=== PATIENT | male | born 1970 | race Caucasian/White ===

== ENCOUNTER 2018-10-28 11:55 | Day surgery (SDC) | payer OTHER ==
[~2018-10-28] VITALS: Ht 185.4 cm; Wt 88.4 kg
[~2018-10-28 11:55] MED LIST: ADDE30CA3 PO; AMLO10TA5 PO; DUPI200I SC; LISI10TA4 PO; NS 1,000 ML IV ONE; PANT40TA3 PO; TRAM50TA2 PO
[2018-10-28] MEDS ORDERED: PROPOFOL 200 MG/20 ML VIAL As Ordered ONE (13:14)
[2018-10-28] MEDS ORDERED: LIDOCAINE 2% INJ 100 MG/5 ML SDV (FOR ANES.) As Ordered ONE (13:14)
--- NOTE | 2018-10-28 14:40 | ROOR ---
Patient Name: Rojelio Salazar Procedure Date: 10/28/2018 2:22 PM Date of : 1970 Age: 48 Room: [facility] Gender: Male Note Status: Finalized Procedure: Upper GI endoscopy Indications: Heartburn Providers: Edin MAGALLANES MD Referring MD: AMAYA CONDE MD Requesting Provider: Medicines: Monitored Anesthesia Care Complications: No immediate complications. Procedure: Pre-Anesthesia Assessment: - The heart rate, respiratory rate, oxygen saturations, blood pressure, adequacy of pulmonary ventilation, and response to care were monitored throughout the procedure. The Endoscope was introduced through the mouth, and advanced to the second part of duodenum. The upper GI endoscopy was accomplished without difficulty. The patient tolerated the procedure well. Findings: Moderately severe esophagitis was found 41 cm from the incisors. The exam was otherwise without abnormality. Impression: - Moderately severe reflux esophagitis. - The examination was otherwise normal. - No specimens collected. Recommendation: - Use Protonix (pantoprazole) 40 mg PO daily. - Observe patient's clinical course. - Follow an antireflux regimen. Edin Magallanes MD Edin MAGALLANES MD 10/28/2018 2:40:12 PM This report has been signed electronically. Number of Addenda: 0 Note Initiated On: 10/28/2018 2:22 PM Estimated Blood Loss: Estimated blood loss: none.
--- NOTE | 2018-10-28 14:51 | ROOR ---
Patient Name: Rojelio Salazar Procedure Date: 10/28/2018 2:29 PM Date of : 1970 Age: 48 Room: [facility] Gender: Male Note Status: Finalized Procedure: Colonoscopy Indications: Hematochezia Providers: Edin MAGALLANES MD Referring MD: AMAYA CONDE MD Requesting Provider: Medicines: Monitored Anesthesia Care Complications: No immediate complications. Procedure: Pre-Anesthesia Assessment: - The heart rate, respiratory rate, oxygen saturations, blood pressure, adequacy of pulmonary ventilation, and response to care were monitored throughout the procedure. The Colonoscope was introduced through the anus and advanced to 10 cm into the ileum. The colonoscopy was performed without difficulty. The patient tolerated the procedure well. The quality of the bowel preparation was good. Findings: The perianal and digital rectal examinations were normal. Small Internal Hemorrhoids. The entire examined colon appeared normal on direct and retroflexion views. The terminal ileum appeared normal. Retroflexion in the right colon was performed. Impression: - Small Internal Hemorrhoids. - The entire examined colon is normal on direct and retroflexion views. - The examined portion of the ileum was normal. - No specimens collected. Recommendation: - Use fiber, for example Citrucel, Fibercon, Konsyl or Metamucil. - Repeat colonoscopy in 10 years for screening purposes. Edin Magallanes MD Edin MAGALLANES MD 10/28/2018 2:51:09 PM This report has been signed electronically. Number of Addenda: 0 Note Initiated On: 10/28/2018 2:29 PM Estimated Blood Loss: Estimated blood loss: none.
[2018-10-28 15:21] VITALS: BP 127/90
== END 2018-10-28 16:03 | disposition home or self-care (01) ==
LOC: M OPP 11:55
PROVIDERS: ATTEND Internal Medicine Gastroenterology
DX: K92.1 Melena (principal); R12 Heartburn; K64.8 Other hemorrhoids; K21.0 Gastro-esophageal reflux disease with esophagitis; G47.33 Obstructive sleep apnea (adult) (pediatric); I10 Essential (primary) hypertension; Z79.899 Other long term (current) drug therapy; Z87.891 Personal history of nicotine dependence

== ENCOUNTER → 2018-12-07 | Outpatient (CLI) | payer OTHER ==
[~2018-12-07] MED LIST changes: -NS 1,000 ML IV ONE
--- NOTE | 2018-12-08 08:54 | REP ---
Clinical: Paresthesia of the lower extremities. Technique: Real time livingston scale and color Doppler evaluation of the bilateral lower extremity arterial vasculature using linear high frequency transducer. Findings: Livingston scale and color images demonstrate no significant areas of stenosis or narrowing. Doppler interrogation demonstrates normal triphasic arterial wave forms and velocities bilaterally. Right NAOMI: 1.1. Left NAOMI: 1.1. Peak systolic velocities (cm/sec) RIGHT LEFT Common femoral artery 96.3 95.9 Profunda femoris 88.2 59.0 SFA (proximal) 103.0 122.0 SFA (mid) 117.4 94.5 SFA (distal) 74.2 49.0 Popliteal artery 52.6 50.7 BRANDON (prox.) 36.0 42.3 Tibioperoneal trunk 61.1 52.5 VOLLEYBALL ASSISTANT COACH (prox.) 51.2 45.9 VOLLEYBALL ASSISTANT COACH (distal) 65.6 51.0 BRANDON (distal) 18.7 41.3 Impression: Normal bilateral lower extremity arterial ultrasound. No areas of stenosis. Electronically Signed by Nikolai Amaro MD 12/08/2018 08:46 A
== END ==
LOC: M RAD 09:14
PROVIDERS: ATTEND Student in an Organized Health Care Education/Training Program
DX: R20.0 Anesthesia of skin (principal)

== ENCOUNTER 2020-09-28 14:27 | Emergency (ER) | payer OTHER ==
[~2020-09-28] VITALS: Ht 190.5 cm; Wt 94.0 kg
[~2020-09-28 14:27] MED LIST changes: -AMLO10TA5 PO; +AMLO1TAB25 PO; +PANT40TA29 PO; -PANT40TA3 PO
--- OUTSIDE RECORDS SUMMARY | 2020-09-28 14:35 | CCD | Continuity of Care Document ---
Author Author Rojelio CASE MD Organization Unknown Address [address] [place] [address], [address] [address] Phone [phone] Care Team Providers Care Product Development Intern Name Role Phone Bob Roman D.O. AUTM [phone] Jovana Lima AUTM [phone] Problems Active Problems Provider Date Essential hypertension Juventino Walker MD Onset: 12/21/2018 Social History Type Date Description Comments Sex Unknown ETOH Use Denies alcohol use Tobacco Use Start: Unknown End: Unknown Patient is a former smoker Smoking Status Reviewed: 05/15/20 Patient is a former smoker Allergies, Adverse Reactions, Alerts Description No Known Drug Allergies Medications Active Medications SIG Qnty Indications Ordering Provide r Date Hydrochlorothiazide 12.5mg Capsules Yoko Mullins MD Lisinopril 20mg Tablets Yoko Mullins MD Tramadol HCL 50mg Tablets Guerda Dodson FNP Norvasc 2.5mg Tablets Unknown Immunizations Description No Information Available Vital Signs Date Vital Result Comment 06/20/2020 10:28am Body Temperature 97.5 F Height 73 inches 6'1" Weight 213.00 lb BMI (Body Mass Index) 28.1 kg/m2 04/30/2020 2:45pm Body Temperature 98.0 F Height 73 inches 6'1" Weight 205.00 lb BMI (Body Mass Index) 27.0 kg/m2 Results Test Acquired Date Facility Test Result H/L Range Note Order 06/04/2020 [facility] [address] [facility] [address] [place] [address] Surgery <pending> Procedures Date Code Description Status 06/28/2020 07700 Inject/Drain Joint/Bursa Major C ompleted 05/15/2020 08592 Nerve Conduction 13+ Studies Com pleted 05/15/2020 06603 Needle Electromyography,Complete Five Or More Muscles Studied Completed Medical Devices Description No Information Available Encounters Type Date Location Provider Dx Diagnosis Office Visit 06/28/2020 9:15a Alicia Cazares MD M7 5.42 Impingement syndrome of left shoulder M75.52 Bursitis of left shoulder Office Visit 06/20/2020 10:00a Alicia Case MD M75.42 Impingement syndrome of left shoulder Office Visit 05/30/2020 9:15a Alicia Case MD G56.21 Lesion of ulnar nerve, right upper limb G56.22 Lesion of ulnar nerve, left upper limb G56.01 Carpal tunnel syndrome, righ t upper limb Office Visit 05/15/2020 8:00a Alicia Walker MD R20.2 Paresthesia of skin G56.21 Lesion of ulnar nerve, right upper limb G56.01 Carpal tunnel syndrome, righ t upper limb M50.322 Other cervical disc degenera tion at C5-C6 level Office Visit 04/30/2020 2:00p Alicia Case MD R20.2 Paresthesia of skin Assessments Date Code Description Provider 06/28/2020 M75.42 Impingement syndrome of left paul ulder D. Juan Cazares MD 06/28/2020 M75.52 Bursitis of left shoulder D. Pet madhu Cazares MD 06/20/2020 M75.42 Impingement syndrome of left paul ulder Tim Case MD 05/30/2020 G56.21 Lesion of ulnar nerve, right upp er limb Tim Case MD 05/30/2020 G56.22 Lesion of ulnar nerve, left uppe r limb Tim Case MD 05/30/2020 G56.01 Carpal tunnel syndrome, right up per limb Tim Case MD 05/15/2020 R20.2 Paresthesia of skin Juventino darnell MD 05/15/2020 G56.21 Lesion of ulnar nerve, right upp er limb Juventino Walker MD 05/15/2020 G56.01 Carpal tunnel syndrome, right up per limb Juventino Walker MD 05/15/2020 M50.322 Other cervical disc degeneration at C5-C6 level Juventino Walker MD 04/30/2020 R20.2 Paresthesia of skin Tim zurita MD Plan of Treatment 06/28/2020 - Anamika Cazares MD* M75.42 Impingement syndrome of left shoulder* Follow up:* in 2-3 months for left shoulder recheck * M75.52 Bursitis of left shoulder Functional Status Description No Information Available Mental Status Description No Information Available Referrals Refer to Reason for Referral Status Appt Date Tim Case MD SURGERY PER [employer] APPROVAL FOR LEFT ULNAR NERVE SURGERY (29879) TO SURGERY NT Created [address] [place], [place] [id number] [phone] Tim Case MD EMG([id number]) PER H [facility] HAS MELISSA APPROVED FOR DR ROW[place] TO SCHEDULING NT Created [address] [place] [phone] Tim Case MD OFFICE CONSULT NEW OR ESTABL ISHED PATIENT FOR BILATERAL ULNAR NEUROPATHY CASING NUMBNESS/TINGLING OF THE 4TH AND 5TH DIGITS BILATERALLY. Created [address] [place] [phone] Tim Case MD OFFICE/OUTPATIENT VISIT EST FOR BILATERAL ULNAR NEUROPATHY CAUSING NUMBNESS/TINGLING OF THE 4TH AND 5TH DIGITS BILATERALLY. Created [address] [place] [phone]
--- OUTSIDE RECORDS SUMMARY | 2020-09-28 14:35 | CCD | Continuity of Care Document ---
Author Author Rojelio CAZARES MD Organization Unknown Address [address] [place] [address], [address] [address] Phone [phone] Care Team Providers Care Roofing Subcontractor Name Role Phone AbelBob D.O. AUTM [phone] Jovana Lima AUTM [phone] Problems Active Problems Provider Date Essential hypertension [...] 06/04/2020 [facility] [address] [facility] [address] [place] [address] Surgery <pending> Procedures Date Code Description Status 06/28/2020 81004 Inject/Drain Joint/Bursa Major C ompleted 05/15/2020 06874 Nerve Conduction 13+ Studies Com pleted 05/15/2020 85998 Needle Electromyography,Complete Five Or More Muscles Studied Completed Medical Devices Description No Information Available Encounters Type Date Location Provider Dx Diagnosis Office Visit 06/28/2020 9:15a Alicia Cazares MD M2 5.512 Pain in left shoulder M19.012 Primary osteoarthritis, left shoulder Office Visit 06/20/2020 10:00a Alicia Buckley MD M75.42 Impingement syndrome of left shoulder Office Visit 05/30/2020 9:15a Alicia Buckley MD G56.21 Lesion of ulnar nerve, right [...] C5-C6 level Office Visit 04/30/2020 2:00p Alicia Buckley MD R20.2 Paresthesia of skin Assessments Date Code Description Provider 06/28/2020 M25.512 Pain in left shoulder D. Juan hernandez MD 06/28/2020 M19.012 Primary osteoarthritis, left paul mandi Cazares MD 06/20/2020 M75.42 Impingement syndrome of left paul ulder Tim Buckley MD 05/30/2020 G56.21 Lesion of ulnar nerve, right upp er limb Tim Buckley MD 05/30/2020 G56.22 Lesion of ulnar nerve, left uppe r limb Tim Buckley MD 05/30/2020 G56.01 Carpal tunnel syndrome, right up per limb Tim Buckley MD 05/15/2020 R20.2 Paresthesia of skin Juventino darnell MD 05/15/2020 G56.21 Lesion of ulnar nerve, right upp er limb Juventino Walker MD 05/15/2020 G56.01 Carpal tunnel syndrome, right up per limb Juventino Walker MD 05/15/2020 M50.322 Other cervical disc degeneration at C5-C6 level Juventino Walker MD 04/30/2020 R20.2 Paresthesia of skin Tim zurita MD Plan of Treatment 06/20/2020 - Tim Buckley MD* M75.42 Impingement syndrome of left shoulder* Follow up:* next avail surg eval lt shoulder with dpv per sbf prn with sbf Functional Status Description No Information Available Mental Status Description No Information Available Referrals Refer to Reason for Referral Status Appt Date Tim Buckley MD SURGERY PER [employer] APPROVAL FOR LEFT ULNAR NERVE SURGERY ([id number]) TO SURGERY NT Created [address] [place] [address] [phone] Tim Buckley MD EMG([id number]) PER H [employer] HAS MELISSA APPROVED FOR DR [place] TO SCHEDULING NT Created [address] [place] [phone] Tim Buckley MD OFFICE CONSULT NEW OR ESTABL ISHED PATIENT FOR BILATERAL ULNAR NEUROPATHY CASING NUMBNESS/TINGLING OF THE 4TH AND 5TH DIGITS BILATERALLY. Created [address] [place] [phone] Tim Buckley MD OFFICE/OUTPATIENT VISIT EST FOR BILATERAL ULNAR NEUROPATHY CAUSING NUMBNESS/TINGLING OF THE 4TH AND 5TH DIGITS BILATERALLY. Created [facility] [address] [address] [phone]
--- OUTSIDE RECORDS SUMMARY | 2020-09-28 14:36 | CCD ---
Author Author [facility] Organization [facility] Address Unknown Phone Unavailable Care Team Providers Care Loss Prevention Specialist Name Role Phone Jumalon, M Guerda X [employer] WIREMAN Unavailable Unavailable Jumalon, M Guerda X [employer] WIREMAN Unavailable Unavailable Jumalon, M Guerda X [employer] ELECT[employer] WIREMAN Unavailable Unavailable Jumalon, M Guerda X RAY ELECTRON[employer] WIREMAN Unavailable Unavailable Jumalon, M Guerda X RAY ELECTRONICS WIREMAN Unavailable Unavailable Jumalon, M Guerda X RAY ELECTRONICS WIREMAN Unavailable Unavailable Jumalon, M Guerda X RAY ELECTRONICS WIREMAN Unavailable Unavailable Jumalon, M Guerda X RAY ELECTRONICS WIREMAN Unavailable Unavailable Jumalon, M Guerda X RAY ELECTRONICS WIREMAN Unavailable Unavailable Jumalon, M Guerda X RAY ELECTRONICS WIREMAN Unavailable Unavailable Jumalon, M Guerda X RAY ELECTRONICS WIREMAN Unavailable Unavailable Jumalon, M Guerda X RAY ELECTRONICS WIREMAN Unavailable Unavailable Jumalon, M Guerda X R[employer] ELECTRONICS WIREMAN Unavailable Unavailable Jumalon, M Guerda X RAY ELECTRONICS WIREMAN Unavailable Unavailable Jumalon, M Guerda X RAY ELECTRONICS WIREMAN Unavailable Unavailable Jumalon, M Guerda X RAY ELECTRONICS WIREMAN Unavailable Unavailable Jumalon, M Guerda X R[employer] ELECTRONICS WIREMAN Unavailable Unavailable Jumalon, M Guerda X R[employer] ELECTRON[employer] WIREMAN Unavailable Unavailable Jumalon, M Guerda X [employer] ELECTRON[employer] WIREMAN Unavailable Unavailable Jumalon, M Guerda X R[employer] ELECTRON[employer] WIREMAN Unavailable Unavailable Jumalon, M Guerda X RAY ELECTRONICS WIREMAN Unavailable Unavailable Jumalon, M Guerda X RAY ELECTRONICS WIREMAN Unavailable Unavailable Jumalon, M Guerda X RAY ELECTRONICS WIREMAN Unavailable Unavailable Jumalon, M Guerda X RAY ELECTRON[employer] WIREMAN Unavailable Unavailable Jumalon, M Guerda X R[employer] ELECTRON[employer] WIREMAN Unavailable Unavailable Jumalon, M Guerda X [employer] ELECT[employer] WIREMAN Unavailable Unavailable Jumalon, M Guerda X [employer] ELECT[employer] WIREMAN Unavailable Unavailable Jumalon, M Guerda X R[employer] ELECT[employer] WIREMAN Unavailable Unavailable Fish, B Tim ALEGRIA Unavailable Unavailable Fish, B Tim ALEGRIA Unavailable Unavailable Fish, B Tim ALEGRIA Unavailable Unavailable Fish, B Tim ALEGRIA Unavailable Unavailable Fish, B Tim ALEGRIA Unavailable Unavailable Fish, B Tim ALEGRIA Unavailable Unavailable Fish, B Tim ALEGRIA Unavailable Unavailable Fish, B Tim ALEGRIA Unavailable Unavailable Fish, B Tim ALEGRIA Unavailable Unavailable Fish, B Tim ALEGRIA Unavailable Unavailable Fish, B Tim ALEGRIA Unavailable Unavailable Fish, B Tim ALEGRIA Unavailable Unavailable Fish, B Tim ALEGRIA Unavailable Unavailable Fish, B Tim ALEGRIA Unavailable Unavailable Fish, B Tim ALEGRIA Unavailable Unavailable Fish, B Tim ALEGRIA Unavailable Unavailable Fish, B Tim ALEGRIA Unavailable Unavailable Fish, B Tim ALEGRIA Unavailable Unavailable Fish, B Tim ALEGRIA Unavailable Unavailable Fish, B Tim ALEGRIA Unavailable Unavailable Fish, B Tim ALEGRIA Unavailable Unavailable Fish, B Tim ALEGRIA Unavailable Unavailable Fish, B Tim ALEGRIA Unavailable Unavailable Fish, B Tim ALEGRIA Unavailable Unavailable Fish, B Tim ALEGRIA Unavailable Unavailable Fish, B Tim ALEGRIA Unavailable Unavailable Fish, B Tim ALEGRIA Unavailable Unavailable Fish, B Tim ALEGRIA Unavailable Unavailable Fish, B Tim ALEGRIA Unavailable Unavailable Fish, B Tim ALEGRIA Unavailable Unavailable Fish, B Tim ALEGRIA Unavailable Unavailable Fish, B Tim ALEGRIA Unavailable Unavailable Fish, B Tim ALEGRIA Unavailable Unavailable Fish, B Tim ALEGRIA Unavailable Unavailable Fish, B Tim ALEGRIA Unavailable Unavailable Fish, B Tim ALEGRIA Unavailable Unavailable Fish, B Tim ALEGRIA Unavailable Unavailable Fish, B Tim ALEGRIA Unavailable Unavailable Fish, B Tim ALEGRIA Unavailable Unavailable Fish, B Tim ALEGRIA Unavailable Unavailable Fish, B Tim ALEGRIA Unavailable Unavailable Fish, Lay Dumont MD Unavailable Unavailable Fish, B Tim ALEGRIA Unavailable Unavailable Fish, B Tim ALEGRIA Unavailable Unavailable Fish, Lay Dumont MD Unavailable Unavailable Fish, Lay Dumont MD Unavailable Unavailable Fish, Lay Dumont MD Unavailable Unavailable Fish, Lay Dumont MD Unavailable Unavailable Fish, B Tim ALEGRIA Unavailable Unavailable Fish, B Tim ALEGRIA Unavailable Unavailable Fish, B Tmi ALEGRIA Unavailable Unavailable Fish, B Tim ALEGRIA Unavailable Unavailable Fish, Lay Dumont MD Unavailable Unavailable Vaneenenaam, Mat Martinez MD Unavailable Unavailable Vaneenenaam, Mat Martinez MD Unavailable Unavailable Vaneenenaam, Mat Martinez MD Unavailable Unavailable Vaneenenaam, Mat Martinez MD Unavailable Unavailable Vaneenenaam, Mat Martinez MD Unavailable Unavailable Vaneenenaam, Mat Martinez MD Unavailable Unavailable Vaneenenaam, Mat Martinez MD Unavailable Unavailable Vaneenenaam, Mat Martinez MD Unavailable Unavailable Vaneenenaam, aMt Martinez MD Unavailable Unavailable Vaneenenaam, Mat Martinez MD Unavailable Unavailable Vaneenenaam, Mat Martinez MD Unavailable Unavailable Vaneenenaam, Mat Martinez MD Unavailable Unavailable Vaneenenaam, Mat Martinez MD Unavailable Unavailable Vaneenenaam, Mat Martinez MD Unavailable Unavailable Vaneenenaam, Mat aMrtinez MD Unavailable Unavailable Vaneenenaam, Mat Martinez MD Unavailable Unavailable Vaneenenaam, Mat Martinez MD Unavailable Unavailable Vaneenenaam, Mat Martinez MD Unavailable Unavailable Vaneenenaam, Mat Martinez MD Unavailable Unavailable Vaneenenaam, Mat Martinez MD Unavailable Unavailable Vaneenenaam, Mat Martinez MD Unavailable Unavailable Vaneenenaam, Mat Martinez MD Unavailable Unavailable Vanaidaam, Mat Martinez MD Unavailable Unavailable Vaneenenaam, Mat Martinez MD Unavailable Unavailable Vaneenjessicaam, Mat Martinez MD Unavailable Unavailable Vaneenenaam, Mat Martinez MD Unavailable Unavailable Vaneenenaam, Mat Martinez MD Unavailable Unavailable Vaneenenaam, Mat Martinez MD Unavailable Unavailable Vaneenjessicaam, Mat Martinez MD Unavailable Unavailable Vaneenjessicaam, Mat Martinez MD Unavailable Unavailable Vanaidaam, Mat Martinez MD Unavailable Unavailable Vaneenjessicaam, Mat Martinez MD Unavailable Unavailable Vanaidaam, Mat Martinez MD Unavailable Unavailable Vaneenjessicaam, Mat Martinez MD Unavailable Unavailable Vanidalia, Mat Martinez MD Unavailable Unavailable Vanidalia, Mat Martinez MD Unavailable Unavailable Vanidalia, Mat Martinez MD Unavailable Unavailable Vaneenjessicaam, Mat Martinez MD Unavailable Unavailable Vanidalia, Mat Martinez MD Unavailable Unavailable Vanaidaam, Mat Martinez MD Unavailable Unavailable Vanidalia, Mat Martinez MD Unavailable Unavailable Debora, Mat Martinez MD Unavailable Unavailable Olivia Santoyo MD Unavailable Unavailable Olivia Santoyo MD Unavailable Unavailable Olivia Santoyo MD Unavailable Unavailable Olivia Santoyo MD Unavailable Unavailable Olivia Santoyo MD Unavailable Unavailable Olivia Santoyo MD Unavailable Unavailable Olivia Santoyo MD Unavailable Unavailable Olivia Santoyo MD Unavailable Unavailable Olivia Santoyo MD Unavailable Unavailable Olivia Santoyo MD Unavailable Unavailable Olivia Santoyo MD Unavailable Unavailable Bolla, S Kenneth MD Unavailable Unavailable Bolla, S Kenneth MD Unavailable Unavailable Bolla, S Kenneth MD Unavailable Unavailable Bolla, S Kenneth MD Unavailable Unavailable Bolla, S Kenneth MD Unavailable Unavailable Bolla, S Kenneth MD Unavailable Unavailable Bolla, S Kenneth MD Unavailable Unavailable Bolla, S Kenneth MD Unavailable Unavailable Bolla, S Kenneth MD Unavailable Unavailable Bolla, S Kenneth MD Unavailable Unavailable Bolla, S Kenneth MD Unavailable Unavailable Bolla, S Kenneth MD Unavailable Unavailable Bolla, S Kenneth MD Unavailable Unavailable Bolla, S Kenneth MD Unavailable Unavailable Bolla, S Kneneth MD Unavailable Unavailable Bolla, S Kenneth MD Unavailable Unavailable Bolla, S Kenneth MD Unavailable Unavailable Bolla, S Kenneth MD Unavailable Unavailable Bolla, S Kenneth MD Unavailable Unavailable Bolla, S Kenneth ALEGRIA Unavailable Unavailable Bolla, S Kenneth MD Unavailable Unavailable Bolla, S Kenneth ALEGRIA Unavailable Unavailable Bolla, S Kenneth MD Unavailable Unavailable Bolla, S Kenneth MD Unavailable Unavailable Bolla, S Kenneth MD Unavailable Unavailable Bolla, S Kenneth MD Unavailable Unavailable Bolla, S Kenneth MD Unavailable Unavailable Bolla, S Kenneth MD Unavailable Unavailable Bolla, S Kenneth MD Unavailable Unavailable Bolla, S Kenneth MD Unavailable Unavailable Bolla, S Kenneth MD Unavailable Unavailable Bolamy, Olivia CookKenneth MD Unavailable Unavailable Bolla, S Kenneth MD Unavailable Unavailable Bolamy, S Kenneth MD Unavailable Unavailable Bolla, S Kenneth MD Unavailable Unavailable Bolla, S Kenneth MD Unavailable Unavailable Bolla, S Kenneth MD Unavailable Unavailable Walker, Juventino Unavailable Unavailable Walekr, Juventino Unavailable Unavailable Walker, Juventino Unavailable Unavailable Walker, Juventino Unavailable Unavailable Walker, Juventino Unavailable Unavailable Walker, Juventino Unavailable Unavailable Walker, Juventino Unavailable Unavailable Walker, Juventino Unavailable Unavailable Walker, Juventino Unavailable Unavailable Walker, Juventino Unavailable Unavailable Walker, Juventino Unavailable Unavailable Walker, Juventino Unavailable Unavailable Walker, Juventino Unavailable Unavailable Walker, Juventino Unavailable Unavailable Walker, Juventino Unavailable Unavailable Walker, Juventino Unavailable Unavailable Walker, Juventino Unavailable Unavailable Walker, Juventino Unavailable Unavailable Walker, Juventino Unavailable Unavailable Walker, Juventino Unavailable Unavailable Walker, Juventino Unavailable Unavailable Walker, Juventino Unavailable Unavailable Walker, Juventino Unavailable Unavailable Walker, Juventino Unavailable Unavailable Walker, Juventino Unavailable Unavailable Walker, Juventino Unavailable Unavailable Walker, Juventino Unavailable Unavailable Walker, Juventino Unavailable Unavailable Walker, Juventino Unavailable Unavailable Walker, Juventino Unavailable Unavailable Walker, Juventino Unavailable Unavailable Walker, Juventino Unavailable Unavailable Walker, Juventino Unavailable Unavailable Walker, Juventino Unavailable Unavailable Walker, Juventino Unavailable Unavailable Walker, Juventino Unavailable Unavailable Walker, Juventino Unavailable Unavailable Walker, Juventino Unavailable Unavailable Walker, Juventino Unavailable Unavailable Walker, Juventino Unavailable Unavailable Walker, Juventino Unavailable Unavailable Walker, Juventino Unavailable Unavailable Walker, Juventino Unavailable Unavailable Walker, Juventino Unavailable Unavailable Re-disclosure Warning The records that you are about to access may contain information from federally-assisted alcohol or drug abuse programs. If such information is present, then the following federally mandated warning applies: This information has been disclosed to you from records protected by federal confidentiality rules (42 CFR part 2). The federal rules prohibit you from making any further disclosure of this information unless further disclosure is expressly permitted by the written consent of the person to whom it pertains or as otherwise permitted by 42 CFR part 2. A general authorization for the release of medical or other information is NOT sufficient for this purpose. The Federal rules restrict any use of the information to criminally investigate or prosecute any alcohol or drug abuse patient.The records that you are about to access may contain highly sensitive health information, the redisclosure of which is protected by Article 27-F of the [facility] Public Health law. If you continue you may have access to information: Regarding HIV / AIDS; Provided by facilities licensed or operated by the [facility] Office of Mental Health; or Provided by the [facility] Office for People With Developmental Disabilities. If such information is present, then the following [facility] mandated warning applies: This information has been disclosed to you from confidential records which are protected by state law. State law prohibits you from making any further disclosure of this information without the specific written consent of the person to whom it pertains, or as otherwise permitted by law. Any unauthorized further disclosure in violation of state law may result in a fine or custodial sentence or both. A general authorization for the release of medical or other information is NOT sufficient authorization for further disc losure. Family History Family Member Name Family Member Gender Family Member Status Date o f Status Description Data Source(s) Unknown Male Problem [facility] ([facility] ) Unknown Unknown Problem [facility] ([facility], ) Encounters Encounter Providers Location Date Indications Data Source(s ) Outpatient Attender: Mat Cazares MD Physical Therap y 06/28/2020 09:15:00 AM EDT [facility] ([facility]) Outpatient Attender: Tim Buckley MD Physical Therapy 06/20/2020 1 0:00:00 AM EDT [facility] ([facility]) Guerda Herrmann [place], SEAT COVER INSTALLER: [address], [place] [address], Ph. Attender: Guerda Dodson [facility] - [facility] 06/19/2020 12:00:00 AM EDT ATHE NA ([facility]) Outpatient Attender: Tim Buckley MD Physical Therapy 05/30/2020 0 9:15:00 AM EDT [facility] ([facility]) Outpatient Attender: Juventino Walker Physical Therapy 05/15/2020 08:00:0 0 AM EDT [facility] ([facility]) Outpatient Attender: Tim Buckley MD Physical Therapy 04/30/2020 0 2:00:00 PM EDT [facility] ([facility]) Kenneth Santoyo MD: [address], [place] [address], Ph. Attender: Kenneth Santoyo MD [place] [facility] 04/15/2020 12:00:00 AM EDT GATO ([facility]) Kenneth Santoyo MD: [address], [place] [address], Ph. Attender: Kenneth Santoyo [place] [facility] 04/15/2020 12:00:00 AM EDT GATO ([facility]) Guerda Dodson, SEAT COVER INSTALLER: [address], [place] [address], Ph. Attender: Guerad Dodson [facility] 04/05/2020 12:00:00 AM EDT ATHE NA ([facility]) Guerda Dodson, SEAT COVER INSTALLER: [address], [address], [place] [address], Ph. Attender: Guerda Dodson [facility] 04/05/2020 12:00:00 AM EDT ATHE NA ([facility]) Guerda Dodson, SEAT COVER INSTALLER: [address], [address], [place] [address], Ph. Attender: Guerda Dodson [facility] 04/05/2020 12:00:00 AM EDT ATHHanane NA ([facility]) Kenneth Santoyo MD: [address], [address], [place] [address], Ph. Attender: Kenneth Santoyo [place] [facility] 03/28/2020 12:00:00 AM EDT GATO ([facility]) Kenneth Santoyo MD: [address], [address], [place] [address], Ph. Attender: Kenneth GONZALEZ - [facility] 03/28/2020 12:00:00 AM EDT GATO ([facility]) Kenneth Santoyo MD: [address], [address], [place] [address], Ph. Attender: Kenneth Santoyo [place] [facility] 03/28/2020 12:00:00 AM EDT GATO ([facility]) Kenneth Santoyo MD: [address], [address], [place] [address], Ph. Attender: Kenneth Santoyo [place] [facility] 03/28/2020 12:00:00 AM EDT GATO ([facility]) Kenneth Santoyo MD: [address], [address], [place] [address], Ph. [phone] Attender: Kenneth Santoyo [place] [facility] 03/11/2020 12:00:00 AM EDT GATO ([facility]) Kenneth Santoyo MD: [address], [address], [place] [address], Ph. [phone] Attender: Kenneth Santoyo MD [place] [facility] 03/11/2020 12:00:00 AM EDT GATO ([facility]) Kenneth Santoyo MD: [address], [address], [place] [address], Ph. [phone] Attender: Kenneth GONZALEZ - [facility] 03/11/2020 12:00:00 AM EDT GATO ([facility]) Kenneth Santoyo MD: [address], [address], [place] [address], Ph. [phone] Attender: Kenneth Santoyo [place] [facility] 03/11/2020 12:00:00 AM EDT GATO ([facility]) Kenneth Santoyo MD: [address], [address], [place] [address], Ph. [phone] Attender: Kenneth GONZALEZ - [facility] 03/11/2020 12:00:00 AM EDT GATO ([facility]) Kenneth Santoyo MD: [address], [address], [place] [address], Ph. Attender: Kenneth GONZALEZ - [facility] 03/01/2020 12:00:00 AM EDT GATO ([facility]) Kenneth Santoyo MD: [address], [address], [place] [address], Ph. Attender: Kenneth Santoyo [place] [facility] 03/01/2020 12:00:00 AM EDT GATO ([facility]) Kenneth Santoyo MD: [address], [address], [place] [address], Ph. Attender: Kenneth Santoyo [place] [facility] 03/01/2020 12:00:00 AM EDT GATO ([facility]) Kenneth Santoyo MD: [address], [address], [place] [address], Ph. Attender: Kenneth Santoyo MD [place] [facility] 03/01/2020 12:00:00 AM EDT GATO ([facility]) Kenneth Santoyo MD: [address], [address], [place] [address], Ph. Attender: Kenneth Santoyo MD [place] [facility] 03/01/2020 12:00:00 AM EDT GATO ([facility]) Kenneth Santoyo MD: [address], [address], [place] [address], Ph. Attender: Kenneth Santoyo MD [place] [facility] 03/01/2020 12:00:00 AM EDT GATO ([facility]) Kenneth Santoyo MD: [address], [address], [place] [address], Ph. Attender: Kenneth Santoyo [place] [facility] 02/29/2020 12:00:00 AM EDT GATO ([facility]) Kenneth Santoyo MD: [address], [address], [place] [address], Ph. Attender: Kenneth Santoyo MD [place] [facility] 02/29/2020 12:00:00 AM EDT GATO ([facility]) Kenneth Santoyo MD: [address], [address], [place] [address], Ph. Attender: Kenneth Santoyo [place] [facility] 02/29/2020 12:00:00 AM EDT GATO ([facility]) Kenneth Santoyo MD: [address], [address], [place] [address], Ph. Attender: Kenneth Santoyo MD [place] [facility] 02/29/2020 12:00:00 AM EDT GATO ([facility]) Kenneth Santoyo MD: [address], [address], [place] [address], Ph. Attender: Kenneth Santoyo MD [place] [facility] 02/29/2020 12:00:00 AM EDT GATO ([facility]) Kenneth Santoyo MD: [address], [address], [place] [address], Ph. Attender: Kenneth Santoyo MD [place] [facility] 02/29/2020 12:00:00 AM EDT GATO ([facility]) Kenneth Santoyo MD: [address], [address], [place] [address], Ph. Attender: Kenneth GONZALEZ - [facility] 02/29/2020 12:00:00 AM EDT GATO ([facility]) Kenneth Santoyo MD: [address], [address], [place] [address], Ph. [phone] Attender: Kenneth Santoyo MD [place] [facility] 02/26/2020 12:00:00 AM EDT GATO ([facility]) Kenneth Santoyo MD: [address], [address], [place] [address], Ph. [phone] Attender: Kenneth Santoyo MD [place] [facility] 02/26/2020 12:00:00 AM EDT GATO ([facility]) Kenneth Santoyo MD: [address], [address], [place] [address], Ph. [phone] Attender: Kenneth Santoyo MD [place] [facility] 02/26/2020 12:00:00 AM EDT GATO ([facility]) Kenneth Santoyo MD: [address], [address], [place] [address], Ph. [phone] Attender: Kenneth Santoyo MD [place] [facility] 02/26/2020 12:00:00 AM EDT GATO ([facility]) Kenneth Santoyo MD: [address], [address], [place] [address], Ph. [phone] Attender: Kenneth Santoyo MD [place] [facility] 02/26/2020 12:00:00 AM EDT GATO ([facility]) Kenneth Santoyo MD: [address], [address], [place] [address], Ph. [phone] Attender: Kenneth Santoyo MD [place] [facility] 02/26/2020 12:00:00 AM EDT GATO ([facility]) Kenneth Santoyo MD: [address], [address], [place] [address], Ph. [phone] Attender: Kenneth Santoyo MD [place] [facility] 02/26/2020 12:00:00 AM EDT GATO ([facility]) Kenneth Santoyo MD: [address], [place] [address], Ph. [phone] Attender: Kenneth Santoyo MD [place] [facility] 02/26/2020 12:00:00 AM EDT GATO ([facility]) Guerda Mariekenanoscar, SEAT COVER INSTALLER: [address], [place] [address], Ph. Attender: Guerda Castellonoscar [facility] - [facility] 02/15/2020 12:00:00 AM EDT ATHE NA ([facility]) Guerda Herrmann Ravinderoscar, SEAT COVER INSTALLER: [address], [place] [address], Ph. Attender: Guerda Castellonoscar [facility] - [facility] 02/15/2020 12:00:00 AM EDT ATHE NA ([facility]) Guerda Dodson, SEAT COVER INSTALLER: [address], [place] [address], Ph. Attender: Guerdarhona Mariekenanoscar [facility] - [facility] 02/15/2020 12:00:00 AM EDT ATHE NA ([facility]) Guerda Dodson, SEAT COVER INSTALLER: [address], [place] [address], Ph. Attender: Guerda Dodson [facility] [facility] 02/15/2020 12:00:00 AM EDT ATHE NA ([facility]) Guerda Dodson, SEAT COVER INSTALLER: [address], [place] [address], Ph. Attender: Guerda Dodson [facility] 02/15/2020 12:00:00 AM EDT ATHE NA ([facility]) Guerda Dodson, SEAT COVER INSTALLER: [address], [place] [address], Ph. Attender: Guerda Dodson [facility] - [facility] 02/15/2020 12:00:00 AM EDT ATHHanane NA ([facility]) Guerda Dodson, SEAT COVER INSTALLER: [address], [place] [address], Ph. Attender: Guerda Dodson [facility] 02/15/2020 12:00:00 AM EDT ATHE NA ([facility]) Guerda Dodson, SEAT COVER INSTALLER: [address], [place] [address], Ph. Attender: Guerda Dodson [facility] 02/15/2020 12:00:00 AM EDT ATHHanane NA ([facility]) Guerda Dodson, SEAT COVER INSTALLER: [address], [place] [address], Ph. Attender: Guerda Dodson [facility] 02/15/2020 12:00:00 AM EDT ATHE NA ([facility]) Insurance Providers Payer name Policy type / Coverage type Policy ID Covered alliance party ID Covered alliance party's relationship to douglas Policy Douglas Plan Information [facility] ACTIVE DUTY [id number] SP [id number] [facility] O [id number] S [id number] [facility] O [id number] S [id number] East Referrals Commercial [id number] Self [id number] East Referrals Commercial [id number] Self [id number] East Referrals Commercial [id number] Self [id number] East Referrals Commercial [id number] Self [id number] EAST HUMANA - O/P [id number] 18 [id number] N REGIONAL CLAIMS MARYLOU -O/P [id number] 18 [id number] East Referrals Commercial [id number] Self [id number] [facility] Health Maintenance Organization (HMO) [id number] Self [id number] East (2018) Health Maintenance Organization (HMO) [id number] Self [id number] ACTIVE DUTY [id number] SP [id number] Surgeries/Procedures Procedure Description Date Indications Data Source(s) ARTHROCENTESIS ASPIR&/INJECTION MAJOR JT/BURSA 020 12:00:00 AM EDT [facility] ) Needle electromyography, each extremity, with related paraspinal areas, when performed, done with nerve conduction, amplitude and latency/velocity study; complete, five or more muscles studied, innervated by three or more nerves or four or more spinal levels (list separately in addition to the code for primary procedure). 05/15/2020 12:00:00 AM EDT RISSA Thorpe ([facility] ) [address] Nerve conduction studies 13 or more studies NEW 201205/15/2020 12:00:00 AM EDT [facility] ([facility] ) Results ID Date Data Source [id number] 06/04/2020 10:00:00 AM EDT [facility] ([facility] ) Name Value Range Interpretation Code Description Data Deana rce(s) Supporting Document(s) Laboratory test finding (navigational concept) Laboratory test result [facility] ID Date Data Source [id number] 05/07/2020 12:00:00 AM EDT [facility] Edin Blair MD Patient Name: LITO BE Date of : [address], [place] [address] Date of Exam: 05/07/2020PH#: Fax: [phone] EXAM: LUMBSACRAL SPINE (2 OR 3 VIEWS) XRAYCLINICAL INFORMATION: Disability.Multiple views of the lumbosacral spine show no acute fracture,dislocation, or subluxation. The intervertebral disc spaces are symmetricand well maintained. There is no spondylolysis or spondylolisthesis. Thepedicles are intact bilaterally and there is no destructive osseous lesion. There is slight anterior lipping.IMPRESSION:Essentially unremarkable lumbosacral spine series.NORM Sohrt/Tristan you for referring LITO BE to our office. 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 The glenohumeralrelationship is within normal limits. There is no acute fracture,dislocation, or subluxation.IMPRESSION:Chronic changes as described above.NORM Short/Tristan grayson for referring LITO BE to our office. Electronically Signed - LANEY MATTHEWS DO 05/08/20 13:38 Name Value Range Interpretation Code Description Data Deana rce(s) Supporting Document(s) ID Date Data Source [id number] 03/25/2020 03:05:00 PM EDT GATO ([facility]) Name Value Range Interpretation Code Description Data Deana rce(s) Supporting Document(s) ID Date Data Source [id number] 03/25/2020 03:05:00 PM EDT [facility]O ([facility]) Name Value Range Interpretation Code Description Data Deana rce(s) Supporting Document(s) ID Date Data Source [id number] 03/25/2020 03:05:00 PM EDT [facility]O ([facility]) Name Value Range Interpretation Code Description Data Deana rce(s) Supporting Document(s) ID Date Data Source [id number] 03/25/2020 03:05:00 PM EDT [facility] ([facility]) Name Value Range Interpretation Code Description Data Deana rce(s) Supporting Document(s) ID Date Data Source [id number] 02/26/2020 12:00:00 AM EDT [facility] Name Value Range Interpretation Code Description Data Deana rce(s) Supporting Document(s) SARS-CoV-2 [facility] This lab was ordered by [facility] and reported by [facility]. Procedure Social History Code Duration Value Status Description Data Source(s ) Smoking 05/15/2020 12:00:00 AM EDT Patient is a former smoker completed Patient is a former smoker [facility] ([facility]) Vital Signs ID Date Data Source UNK Name Value Range Interpretation Code Description Data Source(s) Body mass index (BMI) [Ratio] 28.1 kg/m2 28.1 k g/m2 [facility] ([facility]) Body weight 213.00 [lb_av] 213.00 [lb_av] MEDEN T ([facility]) Body height 73 [in_i] 73 [in_i] [facility] ([facility]) 6'1" Body temperature 97.5 [degF] 97.5 [degF] [facility] ([facility] ) Body mass index (BMI) [Ratio] 27.0 kg/m2 27.0 k g/m2 [facility] ([facility]) Body weight 205.00 [lb_av] 205.00 [lb_av] MEDEN T ([facility] ) Body height 73 [in_i] 73 [in_i] [facility] ([facility]) 6'1" Body temperature 98.0 [degF] 98.0 [degF] [facility] ([facility] ) Body weight 211 [lb_av] 211 [lb_av] [facility] ([facility]) Systolic blood pressure 156 mm[Hg] 156 mm[Hg] A THENA ([facility]) Body mass index (BMI) [Ratio] 26.4 kg/m2 26.4 k g/m2 [facility] ([facility]) Body height 75 [in_i] 75 [in_i] [facility] ([facility]) Diastolic blood pressure 91 mm[Hg] 91 mm[Hg] [facility] ([facility]) Body weight 211 [lb_av] 211 [lb_av] [facility] ([facility]) Systolic blood pressure 156 mm[Hg] 156 mm[Hg] A THENA ([facility]) Body mass index (BMI) [Ratio] 26.4 kg/m2 26.4 k g/m2 [facility] ([facility]) Diastolic blood pressure 91 mm[Hg] 91 mm[Hg] [facility] ([facility]) Body weight 211 [lb_av] 211 [lb_av] [facility] ([facility]) Systolic blood pressure 156 mm[Hg] 156 mm[Hg] A THENA ([facility]) Body mass index (BMI) [Ratio] 26.4 kg/m2 26.4 k g/m2 [facility] ([facility]) Body height 75 [in_i] 75 [in_i] [facility] ([facility]) Diastolic blood pressure 91 mm[Hg] 91 mm[Hg] [facility] ([facility]) Body weight 211 [lb_av] 211 [lb_av] [facility] ([facility]) Systolic blood pressure 156 mm[Hg] 156 mm[Hg] A THENA ([facility]) Body mass index (BMI) [Ratio] 26.4 kg/m2 26.4 k g/m2 [facility] ([facility]) Body height 75 [in_i] 75 [in_i] [facility] ([facility]) Diastolic blood pressure 91 mm[Hg] 91 mm[Hg] [facility] ([facility]) Body weight 211 [lb_av] 211 [lb_av] [facility] ([facility]) Systolic blood pressure 156 mm[Hg] 156 mm[Hg] A THENA ([facility]) Body mass index (BMI) [Ratio] 26.4 kg/m2 26.4 k g/m2 [facility] ([facility]) Body height 75 [in_i] 75 [in_i] [facility] ([facility]) Diastolic blood pressure 91 mm[Hg] 91 mm[Hg] G[facility]O ([facility]) Body weight 211 [lb_av] 211 [lb_av] [facility] ([facility]) Systolic blood pressure 156 mm[Hg] 156 mm[Hg] A THENA ([facility]) Body mass index (BMI) [Ratio] 26.4 kg/m2 26.4 k g/m2 [facility] ([facility]) Body height 75 [in_i] 75 [in_i] [facility] ([facility]) Diastolic blood pressure 91 mm[Hg] 91 mm[Hg] [facility] ([facility]) Body weight 211 [lb_av] 211 [lb_av] [facility] ([facility]) Systolic blood pressure 156 mm[Hg] 156 mm[Hg] A THENA ([facility]) Body mass index (BMI) [Ratio] 26.4 kg/m2 26.4 k g/m2 [facility] ([facility]) Body height 75 [in_i] 75 [in_i] [facility] ([facility]) Diastolic blood pressure 91 mm[Hg] 91 mm[Hg] G[facility] ([facility]) Body height 75 [in_i] 75 [in_i] [facility] ([facility]) Diastolic blood pressure 91 mm[Hg] 91 mm[Hg] [facility] ([facility]) Body weight 211 [lb_av] 211 [lb_av] [facility] ([facility]) Systolic blood pressure 156 mm[Hg] 156 mm[Hg] A THENA ([facility]) Body mass index (BMI) [Ratio] 26.4 kg/m2 26.4 k g/m2 [facility] ([facility]) Body height 75 [in_i] 75 [in_i] [facility]O ([facility]) Diastolic blood pressure 91 mm[Hg] 91 mm[Hg] G[facility] ([facility]) Body weight 211 [lb_av] 211 [lb_av] [facility] ([facility]) Systolic blood pressure 156 mm[Hg] 156 mm[Hg] A THENA ([facility]) Body mass index (BMI) [Ratio] 26.4 kg/m2 26.4 k g/m2 [facility] ([facility]) Body height 75 [in_i] 75 [in_i] GATO ([facility])
[2020-09-28] MEDS ORDERED: SILD100T (14:37)
[2020-09-28] MEDS ORDERED: HYDR12CA (14:37)
[2020-09-28] MEDS ORDERED: OMEP-221 (14:37)
[2020-09-28] MEDS ORDERED: KETOROLAC 30 MG/ML 1ML VIAL IV ONE (15:15)
[2020-09-28] MEDS ORDERED: NS 1,000 ML IV ONE (15:15)
[2020-09-28] MEDS ORDERED: diazePAM 10MG/2ML SYRINGE (J3360 PER 5MG) IV ONE (15:15)
[2020-09-28 15:32] LABS: BASO % 0.2 % (0.0-1.0); HEMATOCRIT 43.9 % (42.0-52.0); HEMOGLOBIN 15.8 g/dl (13.5-17.5); LYMPH # 1.8 10^3/uL (1.5-5.0); LYMPH % 30.8 % (24.0-44.0); MEAN CORPUSCULAR VOLUME 86.1 fl (80.0-96.0); MONO # 0.5 10^3/uL (0.0-0.8); MONO % 8.8 % (0.0-5.0); NEUTROPHILS # 3.5 10^3/uL (1.5-8.5); NEUTROPHILS % 59.4 % (36.0-66.0); PLATELET COUNT, AUTOMATED 299 10^3/uL (150-450); WHITE BLOOD COUNT 5.9 10^3/uL (4.0-10.0)
--- OUTSIDE RECORDS SUMMARY | 2020-09-28 15:46 | CCD ---
Author Author [facility] Organization [facility] Address Unknown Phone Unavailable Care Team Providers Care Wet Suit Gluer Name Role Phone Jumalon, M Guerda MITER OPERATOR Unavailable Unavailable Jumalon, M Guerda MITER OPERATOR Unavailable Unavailable Jumalon, M Guerda MITER OPERATOR Unavailable Unavailable Jumalon, M Guerda MITER OPERATOR Unavailable Unavailable Jumalon, M Guerda MITER OPERATOR Unavailable Unavailable Jumalon, M Guerda MITER OPERATOR Unavailable Unavailable Jumalon, M Guerda MITER OPERATOR Unavailable Unavailable Jumalon, M Guerda MITER OPERATOR Unavailable Unavailable Jumalon, M Guerda MITER OPERATOR Unavailable Unavailable Jumalon, M Guerda MITER OPERATOR Unavailable Unavailable Jumalon, M Guerda MITER OPERATOR Unavailable Unavailable Jumalon, M Guerda MITER OPERATOR Unavailable Unavailable Jumalon, M Guerda MITER OPERATOR Unavailable Unavailable Jumalon, M Guerda MITER OPERATOR Unavailable Unavailable Jumalon, M Guerda MITER OPERATOR Unavailable Unavailable Jumalon, M Guerda MITER OPERATOR Unavailable Unavailable Jumalon, M Guerda MITER OPERATOR Unavailable Unavailable Jumalon, M Guerda MITER OPERATOR Unavailable Unavailable Jumalon, M Guerda MITER OPERATOR Unavailable Unavailable Jumalon, M Guerda MITER OPERATOR Unavailable Unavailable Jumalon, M Guerda MITER OPERATOR Unavailable Unavailable Jumalon, M Guerda MITER OPERATOR Unavailable Unavailable Jumalon, M Guerda MITER OPERATOR Unavailable Unavailable Jumalon, M Guerda MITER OPERATOR Unavailable Unavailable Jumalon, M Guerda MITER OPERATOR Unavailable Unavailable Jumalon, M Guerda MITER OPERATOR Unavailable Unavailable Jumalon, M Guerda MITER OPERATOR Unavailable Unavailable Jumalon, M Guerda MITER OPERATOR Unavailable Unavailable Fish, B Tim ALEGRIA Unavailable Unavailable Fish, B Tim ALEGRIA Unavailable Unavailable Fish, B Tim ALEGRIA Unavailable Unavailable Fish, B Tim ALEGRIA Unavailable Unavailable Fish, B Tim ALEGRIA Unavailable Unavailable Fish, B Tim ALEGRIA Unavailable Unavailable Fish, B Tim ALEGRIA Unavailable Unavailable Fish, B Tim ALEGRIA Unavailable Unavailable Fish, B iTm ALEGRIA Unavailable Unavailable Fish, B Tim ALEGRIA [...] Unavailable Fish, B Tim ALEGRIA Unavailable Unavailable Vaneenenaam, Mat Martinez MD Unavailable [...] Unavailable Vanaidaam, Mat Martinez MD Unavailable Unavailable Vanaidaam, Mat Martinez MD Unavailable Unavailable Vaneenjessicaam, Mat Martinez MD Unavailable Unavailable Vaneenjessicaam, Mat Martinez MD Unavailable Unavailable Vanidalia, Mat Martinez MD Unavailable Unavailable Vanidalia, Mat Martinez MD Unavailable Unavailable Vanaidaam, Mat Martinez MD Unavailable Unavailable Vanaidaam, Mat Martinez MD Unavailable Unavailable Vaneenjessicaam, Mat Martinez MD Unavailable Unavailable Vanaidaam, Mat Martinez MD Unavailable Unavailable Vanidalia, Mat Martinez MD Unavailable Unavailable Olivia Santoyo [...] MD Unavailable Unavailable Walker, Juventino Unavailable Unavailable Walker, [...] is protected by Article 27-F of the [facility] Public Health law. If you continue you may have access to information: Regarding HIV / AIDS; Provided by facilities licensed or operated by the [facility] Office of Mental Health; or Provided by the [facility] Office for People With Developmental Disabilities. If such information is present, then the following [facility] mandated warning applies: This information has [...] law may result in a fine or residential sentence or both. A general authorization for the release of medical or other information is NOT sufficient authorization for further disc losure. Family History Family Member Name Family Member Gender Family Member Status Date o f Status Description Data Source(s) Unknown Male Problem MEDENT ([facility] ) Unknown Unknown Problem [facility] Encounters Encounter Providers Location Date Indications Data Source(s ) Outpatient Attender: Mat Cazares MD Physical Therap y 06/28/2020 09:15:00 AM EDT [facility] ([facility]) Outpatient Attender: Tim Buckley MD Physical Therapy 06/20/2020 1 0:00:00 AM EDT [facility] ([facility]) Guerda Dodson, MATERNITY NURSE: [address], [place] [address], Ph. [facility]: [facility] 06/19/2020 12:00:00 AM EDT ATHSushila NA ([facility]) Outpatient Attender: Tim Buckley MD Physical Therapy 05/30/2020 0 9:15:00 AM EDT MEDENT ([facility]) Outpatient Attender: Juventino Walker Physical Therapy 05/15/2020 08:00:0 0 AM EDT [facility] ([facility]) Outpatient Attender: Tim Buckley MD Physical Therapy 04/30/2020 0 2:00:00 PM EDT MED[facility] ([facility]) Kenneth Santoyo MD: [address], [place] [address], Ph. Attender: [place] [facility] 04/15/2020 12:00:00 AM EDT GATO ([facility]) Kenneth Santoyo MD: [address], [place] [address], Ph. Attender: [place] - [facility] 04/15/2020 12:00:00 AM EDT GATO ([facility]) Guerda Dodson, MATERNITY NURSE: [address], [place] [address], Ph. Attender: [facility] 04/05/2020 12:00:00 AM EDT ATHE NA ([facility]) Guerda Dodson, MATERNITY NURSE: [address], [address], [place] [address], Ph. Attender: Guerda Dodson [facility] - [facility] 04/05/2020 12:00:00 AM EDT ATHE NA ([facility]) Guerda Dodson, MATERNITY NURSE: [address], [address], [place] [address], Ph. Attender: Gureda Dodson [facility] - [facility] 04/05/2020 12:00:00 AM EDT ATHSushila NA ([facility]) Kenneth Santoyo MD: [address], [place] [address], Ph. Attender: Kenneth [place] - [facility] 03/28/2020 12:00:00 AM EDT GATO ([facility]) Kenneth Santoyo MD: [address], [place] [address], Ph. Attender: Kenneth GONZALEZ - [facility] 03/28/2020 12:00:00 AM EDT GATO ([facility]) Kenneth Satnoyo MD: [address], [address], [place] [address], Ph. Attender: Kenneth GONZALEZ - [facility] 03/28/2020 12:00:00 AM EDT GATO ([facility]) Kenneth Santoyo MD: [address], [address], [place] [address], Ph. Attender: Kenneth [place] - [facility] 03/28/2020 12:00:00 AM EDT GATO ([facility]) Kenneth Santoyo MD: [address], [address], [place] [address], Ph. [phone] Attender: Kenneth [place] - [facility] 03/11/2020 12:00:00 AM EDT GATO ([facility]) Kenneth Santoyo MD: [address], [address], [place] [address], Ph. [phone] Attender: Kenneth [place] - [facility] 03/11/2020 12:00:00 AM EDT GATO ([facility]) Kenneth Santoyo MD: [address], [address], [place] [address], Ph. [phone] Attender: Kenneth [place] - [facility] 03/11/2020 12:00:00 AM EDT GATO ([facility]) Kenneth Santoyo MD: [address], [address], [place] [address], Ph. [phone] Attender: Kenneth [place] - [facility] 03/11/2020 12:00:00 AM EDT GATO ([facility]) Kenneth Santoyo MD: [address], [address], [place] [address], Ph. [phone] Attender: Kenneth [place] - [facility] 03/11/2020 12:00:00 AM EDT GATO ([facility]) Kenneth Santoyo MD: [address], [address], [place] [address], Ph. Attender: Kenneth [place] - [facility] 03/01/2020 12:00:00 AM EDT GATO ([facility]) Kenneth Santoyo MD: [address], [address], [place] [address], Ph. Attender: Kenneth GONZALEZ - [facility] 03/01/2020 12:00:00 AM EDT GATO ([facility]) Kenneth Santoyo MD: [address], [address], [place] [address], Ph. Attender: Kenneth GONZALEZ - [facility] 03/01/2020 12:00:00 AM EDT GATO ([facility]) Kenneth Santoyo MD: [address], [address], [place] [address], Ph. Attender: Kenneth GONZALEZ - [facility] 03/01/2020 12:00:00 AM EDT GATO ([facility]) Kenneth Santoyo MD: [address], [address], [place] [address], Ph. Attender: Kenneth GONZALEZ - [facility] 03/01/2020 12:00:00 AM EDT GATO ([facility]) Kenneth Santoyo MD: [address], [address], [place] [address], Ph. Attender: Kenneth GONZALEZ - [facility] 03/01/2020 12:00:00 AM EDT GATO ([facility]) Kenneth Santoyo MD: [address], [address], [place] [address], Ph. Attender: Kenneth GONZALEZ - [facility] 02/29/2020 12:00:00 AM EDT GATO ([facility]) Kenneth Santoyo MD: [address], [address], [place] [address], Ph. Attender: [place] - [facility] 02/29/2020 12:00:00 AM EDT GATO ([facility]) Kenneth Santoyo MD: [address], [address], [place] [address], Ph. Attender: Kenneth [place] - [facility] 02/29/2020 12:00:00 AM EDT GATO ([facility]) Kenneth Santoyo MD: [address], [address], [place] [address], Ph. Attender: Kenneth [place] - [facility] 02/29/2020 12:00:00 AM EDT GATO ([facility]) Kenneth Santoyo MD: [address], [address], [place] [address], Ph. Attender: Kenneth [place] - [facility] 02/29/2020 12:00:00 AM EDT GATO ([facility]) Kenneth Santoyo MD: [address], [address], [place] [address], Ph. Attender: Kenneth GONZALEZ - [facility] 02/29/2020 12:00:00 AM EDT GATO ([facility]) Kenneth Santoyo MD: [address], [address], [place] [address], Ph. Attender: Kenneth GONZALEZ - [facility] 02/29/2020 12:00:00 AM EDT GATO ([facility]) Kenneth Santoyo MD: [address], [address], [place] [address], Ph. [phone] Attender: Kenneth [place] - [facility] 02/26/2020 12:00:00 AM EDT GATO ([facility]) Kenneth Santoyo MD: [address], [address], [place] [address], Ph. [phone] Attender: Kenneth [place] - [facility] 02/26/2020 12:00:00 AM EDT GATO ([facility]) Kenneth Santoyo MD: [address], [address], [place] [address], Ph. [phone] Attender: Kenneth [place] - [facility] 02/26/2020 12:00:00 AM EDT GATO ([facility]) Kenneth Santoyo MD: [address], [address], [place] [address], Ph. [phone] Attender: Kenneth [place] - [facility] 02/26/2020 12:00:00 AM EDT GATO ([facility]) Kenneth Santoyo MD: [address], [address], [place] [address], Ph. [phone] Attender: Kenneth [place] - [facility] 02/26/2020 12:00:00 AM EDT GATO ([facility]) Kenneth Santoyo MD: [address], [address], [place] [address], Ph. [phone] Attender: Kenneth [place] - [facility] 02/26/2020 12:00:00 AM EDT GATO ([facility]) Kenneth Santoyo MD: [address], [address], [place] [address], Ph. [phone] Attender: Kenneth [place] - [facility] 02/26/2020 12:00:00 AM EDT GATO ([facility]) Kenneth Santoyo MD: [address], [place] [address], Ph. [phone] Attender: Kenneth [place] - [facility] 02/26/2020 12:00:00 AM EDT GATO ([facility]) Guerda Dodson, MATERNITY NURSE: [address], [place] [address], Ph. Attender: Guerdarhona Dodson [facility] - [facility] 02/15/2020 12:00:00 AM EDT ATHE NA ([facility]) Guerdarhona Dodson, MATERNITY NURSE: [address], [place] [address], Ph. Attender: Guerdarhona Mariekenanoscar [facility] - [facility] 02/15/2020 12:00:00 AM EDT ATHE NA ([facility]) Guerda Manhailaw Dodson, MATERNITY NURSE: [address], [place] [address], Ph. Attender: Guerda Dodson [facility] - [facility] 02/15/2020 12:00:00 AM EDT ATHE NA ([facility]) Guerda Rohanjuddsherie Dodson, MATERNITY NURSE: [address], [place] [address], Ph. Attender: Guerda West [facility] - [facility] 02/15/2020 12:00:00 AM EDT ATHE NA ([facility]) Guerda Dodson, MATERNITY NURSE: [address], [place] [address], Ph. Attender: Guerda Dodson [facility] - [facility] 02/15/2020 12:00:00 AM EDT ATHE NA ([facility]) Guerda Dodson, MATERNITY NURSE: [address], [address], [place] [address], Ph. Attender: Guerda Dodson [facility] - [facility] 02/15/2020 12:00:00 AM EDT ATHE NA ([facility]) Guerda Dodson, MATERNITY NURSE: [address], [place] [address], Ph. Attender: Guerda Dodson [facility] 02/15/2020 12:00:00 AM EDT ATHE NA ([facility]) Guerda Dodson, MATERNITY NURSE: [address], [place] [address], Ph. Attender: Guerda Dodson [facility] - [facility] 02/15/2020 12:00:00 AM EDT ATHE NA ([facility]) Guerda Dodson, MATERNITY NURSE: [address], [place] [address], Ph. Attender: Guerda Dodson [facility] 02/15/2020 12:00:00 AM EDT ATHE NA ([facility]) Insurance Providers Payer name Policy type / Coverage type Policy ID Covered republican ID Covered republican's relationship to douglas Policy Douglas Plan Information [facility] HUMANA [id number] SP [id number] [facility] ACTIVE DUTY [id number] SP [id number] [employer] O [id number] S [id number] HUMANA [place] REG O [id number] S [id number] [place] Referrals Commercial [id number] Self [id number] East Referrals Commercial [id number] Self [id number] East Referrals Commercial [id number] Self [id number] [place] Referrals Commercial [id number] Self [id number] [place] HUMANA - O/P [id number] 18 [id number] N REGIONAL CLAIMS MARYLOU -O/P [id number] 18 [id number] East Referrals Commercial [id number] Self [id number] [facility] Health Maintenance Organization (HMO) [id number] Self [id number] East (2018) Health Maintenance Organization (HMO) [id number] Self [id number] ACTIVE DUTY [id number] SP [id number] Surgeries/Procedures Procedure Description Date Indications Data Source(s) ARTHROCENTESIS ASPIR&/INJECTION MAJOR JT/BURSA 020 12:00:00 AM EDT MEDENT ([facility] ) Needle electromyography, each extremity, with related paraspinal areas, when performed, done with nerve conduction, amplitude and latency/velocity study; complete, five or more muscles studied, innervated by three or more nerves or four or more spinal levels (list separately in addition to the code for primary procedure). 05/15/2020 12:00:00 AM EDT MEDEN T ([facility] ) 31522 Nerve conduction studies 13 or more studies NEW 201205/15/2020 12:00:00 AM EDT [facility] ([facility] ) Results ID Date Data Source [id number] 06/04/2020 10:00:00 AM EDT [facility] ([facility] ) Name Value Range Interpretation Code Description Data Deana rce(s) Supporting Document(s) Laboratory test finding (navigational concept) Laboratory test result [facility] ([facility] ) ID Date Data Source [id number] 05/07/2020 12:00:[address] [facility] Edin Blair MD Patient Name: LITO BE [place] Date of : [address], [place] [address] Date of Exam: 05/07/2020PH#: Fax: [phone] EXAM: LUMBSACRAL SPINE (2 OR 3 VIEWS) XRAYCLINICAL INFORMATION: Disability.Multiple views of the lumbosacral spine show no acute fracture,dislocation, or subluxation. The intervertebral disc spaces are symmetricand well maintained. There is no spondylolysis or spondylolisthesis. Thepedicles are intact bilaterally and there is no destructive osseous lesion. There is slight anterior lipping.IMPRESSION:Essentially unremarkable lumbosacral spine series.NORM Short/Tristan you for referring LITO BE to our office. Electronically Signed - LANEY MATTHEWS DO 05/08/20 13:39 Name Value Range Interpretation Code Description Data Deana rce(s) Supporting Document(s) ID Date Data Source [id number] 05/07/2020 12:00:00 AM EDT [facility] Edin Blair MD Patient Name: LITO BE [place] Date of : [address], [place] Date of [...] rce(s) Supporting Document(s) ID Date Data Source [id number] 03/25/2020 03:05:00 PM EDT GATO ([facility]) Name Value Range Interpretation Code Description Data Deana rce(s) Supporting Document(s) ID Date Data Source [id number] 03/25/2020 03:05:00 PM EDT GATO ([facility]) Name Value Range Interpretation Code Description Data Deana rce(s) Supporting Document(s) ID Date Data Source [id number] 03/25/2020 03:05:00 PM EDT GATO ([facility]) Name Value Range Interpretation Code Description Data Deana rce(s) Supporting Document(s) ID Date Data Source [id number] 03/25/2020 03:05:00 PM EDT GATO ([facility]) Name Value Range Interpretation Code Description Data Deana rce(s) Supporting Document(s) ID Date Data Source [id number] 02/26/2020 12:00:00 AM EDT [facility] Name Value Range Interpretation Code Description Data Deana rce(s) Supporting Document(s) SARS-CoV-2 [facility] This lab was ordered by [facility] and reported by [facility]. Procedure Social History Code Duration Value Status Description Data Source(s ) Smoking 05/15/2020 12:00:00 AM EDT Patient is a former smoker completed Patient is a former smoker [facility] ([facility] ) Vital Signs ID Date Data Source UNK Name Value Range Interpretation Code Description Data Source(s) Body mass index (BMI) [Ratio] 28.1 kg/m2 28.1 k g/m2 MED[facility] ([facility] ) Body weight 213.00 [lb_av] 213.00 [lb_av] MEDEN T ([facility]) Body height 73 [in_i] 73 [in_i] MEDENT ([facility]) 6'1" Body temperature 97.5 [degF] 97.5 [degF] MED[facility] ([facility]) Body mass index (BMI) [Ratio] 27.0 kg/m2 27.0 k g/m2 MED[facility] ([facility]) Body weight 205.00 [lb_av] 205.00 [lb_av] MEDEN T ([facility]) Body height 73 [in_i] 73 [in_i] MEDENT ([facility]) 6'1" Body temperature 98.0 [degF] 98.0 [degF] MEDENT ([facility]) Body weight 211 [lb_av] 211 [lb_av] [facility]O ([facility]) Systolic blood pressure 156 mm[Hg] 156 mm[Hg] A THENA ([facility]) Body mass index (BMI) [Ratio] 26.4 kg/m2 26.4 k g/m2 GATO ([facility]) Body height 75 [in_i] 75 [in_i] [facility] ([facility]) Diastolic blood pressure 91 mm[Hg] 91 mm[Hg] GATO ([facility]) Body weight 211 [lb_av] 211 [lb_av] [facility] ([facility]) Systolic blood pressure 156 mm[Hg] 156 mm[Hg] A THENA ([facility]) Body mass index (BMI) [Ratio] 26.4 kg/m2 26.4 k g/m2 GATO ([facility]) Diastolic blood pressure 91 mm[Hg] 91 mm[Hg] GATO ([facility]) Body weight 211 [lb_av] 211 [lb_av] [facility] ([facility]) Systolic blood pressure 156 mm[Hg] 156 mm[Hg] A THENA ([facility]) Body mass index (BMI) [Ratio] 26.4 kg/m2 26.4 k g/m2 GATO ([facility]) Body height 75 [in_i] 75 [in_i] GATO ([facility]) Diastolic blood pressure 91 mm[Hg] 91 mm[Hg] GATO ([facility]) Body weight 211 [lb_av] 211 [lb_av] [facility] ([facility]) Systolic blood pressure 156 mm[Hg] 156 mm[Hg] A THENA ([facility]) Body mass index (BMI) [Ratio] 26.4 kg/m2 26.4 k g/m2 GATO ([facility]) Body height 75 [in_i] 75 [in_i] GATO ([facility]) Diastolic blood pressure 91 mm[Hg] 91 mm[Hg] GATO ([facility]) Body weight 211 [lb_av] 211 [lb_av] [facility] ([facility]) Systolic blood pressure 156 mm[Hg] 156 mm[Hg] A THENA ([facility]) Body mass index (BMI) [Ratio] 26.4 kg/m2 26.4 k g/m2 GATO ([facility]) Body height 75 [in_i] 75 [in_i] GATO ([facility]) Diastolic blood pressure 91 mm[Hg] 91 mm[Hg] GATO ([facility]) Body weight 211 [lb_av] 211 [lb_av] [facility]O ([facility]) Systolic blood pressure 156 mm[Hg] 156 mm[Hg] A THENA ([facility]) Body mass index (BMI) [Ratio] 26.4 kg/m2 26.4 k g/m2 GATO ([facility]) Body height 75 [in_i] 75 [in_i] GATO ([facility]) Diastolic blood pressure 91 mm[Hg] 91 mm[Hg] GATO ([facility]) Body weight 211 [lb_av] 211 [lb_av] [facility] ([facility]) Systolic blood pressure 156 mm[Hg] 156 mm[Hg] A THENA ([facility]) Body mass index (BMI) [Ratio] 26.4 kg/m2 26.4 k g/m2 GTAO ([facility]) Body height 75 [in_i] 75 [in_i] GATO ([facility]) Diastolic blood pressure 91 mm[Hg] 91 mm[Hg] GATO ([facility]) Body height 75 [in_i] 75 [in_i] GATO ([facility]) Diastolic blood pressure 91 mm[Hg] 91 mm[Hg] GATO ([facility]) Body weight 211 [lb_av] 211 [lb_av] [facility] ([facility]) Systolic blood pressure 156 mm[Hg] 156 mm[Hg] A THENA ([facility]) Body mass index (BMI) [Ratio] 26.4 kg/m2 26.4 k g/m2 G[facility]O ([facility]) Body height 75 [in_i] 75 [in_i] G[facility]O ([facility]) Diastolic blood pressure 91 mm[Hg] 91 mm[Hg] [facility] [facility]) Body weight 211 [lb_av] 211 [lb_av] GATO ([facility]) Systolic blood pressure 156 mm[Hg] 156 mm[Hg] A THENA ([facility]) Body mass index (BMI) [Ratio] 26.4 kg/m2 26.4 k g/m2 GATO ([facility]) Body height 75 [in_i] 75 [in_i] GATO ([facility])
--- NOTE | 2020-09-28 15:49 | REP ---
INDICATION: severe back pain, into L thigh, reduced reflex L patellar. COMPARISON: Comparison lumbar spine radiographs May 07, 2020.. TECHNIQUE: Helical scanning is acquired. 3 mm axial images re-formatted. Coronal and sagittal MPR images are provided. FINDINGS: Lumbar vertebral body heights are preserved. Alignment is normal. There is minimal disc space narrowing at L3-4 and L4-5 unchanged from the comparison radiographs. There is no evidence of spondylolysis or spondylolisthesis. No fracture or collapse is seen. Minimal discogenic spurring is seen anteriorly at each level from L2-3 through L5-S1. Canal size is developmentally small throughout the lumbar spine. At L2-3, axial and sagittal images show no evidence of disc protrusion or foraminal narrowing. Borderline canal size overall. At L3-4, there is a broad-based left paracentral disc protrusion compressing the thecal sac. There is mild to moderate central canal stenosis. Mild ligamentum flavum hypertrophy contributes to this. No neural foraminal narrowing is seen. At the L4-5 level, there is diffuse disc bulging. In combination with mild facet and ligamentum flavum hypertrophy, this produces mild central canal stenosis. No neural foraminal narrowing is seen. At L5-S1, there is mild central disc bulging. Mild facet hypertrophy is present. No extra vertebral abnormality is noted. Normal caliber aorta. The visualized sacrum and SI joints are unremarkable. IMPRESSION: There is a left paracentral disc protrusion at L3-4 with thecal sac compression. Central canal stenosis is also present at L4-5 due to diffuse disc bulging facet and ligamentum flavum hypertrophy. No acute bony abnormality is seen. <Electronically signed by Marquez Sapp > 09/28/20 [id number]
[2020-09-28 15:51] LABS: ERYTHROCYTE SEDIMENTATION RATE 4 mm/hr (0-20)
--- NOTE | 2020-09-28 15:53 | REP ---
INDICATION: severe back pain. COMPARISON: Comparison CT study of the thoracic spine is dated January 10, 2013.. TECHNIQUE: Helical scanning is acquired and 4 mm axial images are generated and viewed at bone and soft tissue window settings. Coronal and sagittal MPR images are provided. FINDINGS: Thoracic vertebral body heights are preserved and unchanged. No fracture or collapse is seen. There are minimal discogenic spurs formed the anterior aspects of the vertebral bodies in the upper thoracic spine. There is very subtle loss of anterior vertebral body height at the T3 vertebral body level unchanged from the comparison study 2012. Pedicles and posterior elements are intact. No bony destructive lesion is seen. No paravertebral soft tissue mass or swelling is seen. No spinal canal compressive lesion is appreciated. The visualized posterior ribcage is intact. The visualized lung parenchyma is clear. IMPRESSION: No acute bony abnormality. Negative thoracic spine CT study. <Electronically signed by Marquez Sapp > 09/28/20 [id number]
[2020-09-28 15:57] LABS: ALBUMIN 4.2 GM/DL (3.2-5.2); ALT/SGPT 30 U/L (12-78); BILIRUBIN,DIRECT < 0.1 MG/DL (0.0-0.2); BILIRUBIN,TOTAL 0.3 MG/DL (0.2-1.0); C REACTIVE PROTEIN QUANTITATIV < 0.30 MG/DL (0.00-0.30); CK-MB VALUE MASS < 1.0 NG/ML (<3.6); CPK CREATINE PHOSPHOKINASE 91 U/L (39-308); LIPASE 179 U/L (73-393); TOTAL PROTEIN 7.3 GM/DL (6.4-8.2)
[2020-09-28] MEDS ORDERED: HYDR-3715 PO (16:23)
[2020-09-28] MEDS ORDERED: VALI10TA PO (16:23)
[2020-09-28] MEDS ORDERED: ASPE4PAD TOP (16:23)
[2020-09-28] MEDS ORDERED: PRED20TA PO (16:23)
[2020-09-28] MEDS ORDERED: NAPR-837 PO (16:23)
[2020-09-28 16:42] VITALS: BP 121/71
--- NOTE | 2020-09-29 12:48 | ED PDOC ---
Post-Departure Follow-Up ct ls spine faxed to [facility] for fu Murray Li MD Sep 29, 2020 12:48
== END 2020-09-28 16:50 | disposition home or self-care (01) ==
LOC: M ED 14:27
DX: M51.26 Other intervertebral disc displacement, lumbar region (principal); M54.9 Dorsalgia, unspecified; I10 Essential (primary) hypertension; K21.9 Gastro-esophageal reflux disease without esophagitis; K64.9 Unspecified hemorrhoids; G47.30 Sleep apnea, unspecified; N52.9 Male erectile dysfunction, unspecified; F17.220 Nicotine dependence, chewing tobacco, uncomplicated; Z79.899 Other long term (current) drug therapy
CPT/HCPCS: 72128; 72131; 80047; 80076; 81001; 82553; 83690; 85025; 85652; 86140; 96361; 96374; 96375; 99284; J1885; J3360

== ENCOUNTER 2021-03-14 20:27 | Emergency (ER) | payer OTHER ==
[~2021-03-14] VITALS: Ht 190.5 cm; Wt 94.4 kg
[~2021-03-14 20:27] MED LIST changes: +ASPE4PAD TOP; +HYDR-3715 PO; +HYDR12CA; +LISI10TA22 PO; -LISI10TA4 PO; +NAPR-837 PO; +OMEP-221; +PRED20TA PO; +SILD100T; +VALI10TA PO
[2021-03-14 21:10] LABS: BASO % 0.1 % (0.0-1.0); HEMATOCRIT 42.2 % (42.0-52.0); HEMOGLOBIN 14.9 g/dl (13.5-17.5); LYMPH # 1.7 10^3/uL (1.5-5.0); LYMPH % 17.8 % (24.0-44.0); MEAN CORPUSCULAR HEMOGLOBIN 30.2 pg (27.0-33.0); MEAN CORPUSCULAR HGB CONC 35.3 g/dl (32.0-36.5); MEAN CORPUSCULAR VOLUME 85.4 fl (80.0-96.0); MONO # 0.8 10^3/uL (0.0-0.8); MONO % 8.4 % (2.0-8.0); NEUTROPHILS # 7.1 10^3/uL (1.5-8.5); NEUTROPHILS % 73.2 % (36.0-66.0); PLATELET COUNT, AUTOMATED 283 10^3/uL (150-450); RED BLOOD COUNT 4.94 10^6/uL (4.30-6.10); WHITE BLOOD COUNT 9.7 10^3/uL (4.0-10.0)
[2021-03-14 21:45] LABS: BLOOD UREA NITROGEN 9 MG/DL (7-18); CALCIUM LEVEL 8.8 MG/DL (8.5-10.1); CARBON DIOXIDE LEVEL 31 MEQ/L (21-32); CHLORIDE LEVEL 100 MEQ/L (98-107); CK-MB VALUE MASS < 1.0 NG/ML (<3.6); CPK CREATINE PHOSPHOKINASE 99 U/L (39-308); CREATININE FOR GFR 0.88 MG/DL (0.70-1.30); GLOMERULAR FILTRATION RATE > 60.0 (>56); GLUCOSE, FASTING 93 MG/DL (70-100); MB/CK RELATIVE INDEX 1.01 (< OR =4); POTASSIUM SERUM 3.9 MEQ/L (3.5-5.1); SODIUM LEVEL 136 MEQ/L (136-145); TROPONIN I < 0.02 NG/ML (< 0.10)
[2021-03-14] MEDS ORDERED: GI COCKTAIL 50ML BTL(HYOSCYAMINE/MAALOX/LIDOCAINE VISCOUS)(1:3:1) PO ONE (22:20)
[2021-03-14] MEDS ORDERED: KETOROLAC 30 MG/ML 1ML VIAL IV ONE (22:20)
--- NOTE | 2021-03-14 22:21 | REPVR ---
PROCEDURE INFORMATION: Exam: XR Chest Exam date and time: 03/14/2021 9:30 PM Age: 50 years old Clinical indication: Other: Chest pain TECHNIQUE: Imaging protocol: XR of the chest. Views: 1 view. COMPARISON: CT Spine,thoracic w/o contrast 2020-09-28 15:26 FINDINGS: Lungs: Unremarkable. No consolidation. Pleural spaces: Unremarkable. No pleural effusion. No pneumothorax. Heart/Mediastinum: Unremarkable. No cardiomegaly. Bones/joints: Unremarkable. IMPRESSION: No acute findings. Electronically signed by: Edin Rader On 03/14/2021 22:20:39 PM
[2021-03-14] MEDS ORDERED: ISOVUE-370 76% 100ML VIAL As Ordered ONE (22:27)
--- NOTE | 2021-03-14 23:36 | REPVR ---
PROCEDURE INFORMATION: Exam: CTA Chest With Contrast Exam date and time: 03/14/2021 10:48 PM Age: 50 years old Clinical indication: Other: Chest pain TECHNIQUE: Imaging protocol: Computed tomographic angiography of the chest with contrast. 3D rendering (Not supervised by radiologist): MIP and/or 3D reconstructed images were created by the technologist. Radiation optimization: All CT scans at this facility use at least one of these dose optimization techniques: automated exposure control; mA and/or kV adjustment per patient size (includes targeted exams where dose is matched to clinical indication); or iterative reconstruction. Contrast material: ISOVUE 370; Contrast volume: 75 ml; Contrast route: INTRAVENOUS (IV); COMPARISON: CR PORTABLE CHEST X-RAY 03/14/2021 9:18 PM FINDINGS: Pulmonary arteries: There is opacification of the pulmonary arteries with no evidence of pulmonary embolus. Aorta: The there is opacification of the aorta which appears intact. Thyroid: In normal thyroid. Lungs: The lungs appear clear. Pleural spaces: There is no evidence of pneumothorax and no evidence of pleural effusion. Heart: The heart is normal in size and there is no pericardial effusion. Lymph nodes: Unremarkable. No enlarged lymph nodes. Bones/joints: There is no evidence of bony abnormality. Soft tissues: There is no evidence of soft tissue abnormality. IMPRESSION: No evidence of pulmonary embolus. Electronically signed by: Kkie Resendez On 03/14/2021 23:35:23 PM
[2021-03-15 00:06] LABS: CK-MB VALUE MASS < 1.0 NG/ML (<3.6); CPK CREATINE PHOSPHOKINASE 90 U/L (39-308); MB/CK RELATIVE INDEX 1.11 (< OR =4); TROPONIN I < 0.02 NG/ML (< 0.10)
[2021-03-15 01:00] VITALS: BP 149/89
--- NOTE | 2021-03-15 10:57 | ECGEPIP ---
[facility] - ED Test Date: 2021-03-14 Pat Name: LITO BE Department: Room: - Gender: Male Combination Technician: MICAH : 1970 Requested By: YARA Montesinos Order Number: [id number] Reading MD: Marianela Smith Measurements Intervals [place] Rate: 74 P: 37 MS: 166 QRS: -13 QRSD: 78 T: 15 QT: 362 QTc: 401 Interpretive Statements Normal sinus rhythm No prior Electronically Signed on 03-15-2021 10:57:38 EDT by Marianela Smith
--- NOTE | 2021-03-15 10:59 | ECGEPIP ---
[facility] - ED Test Date: 2021-03-14 Pat Name: LITO BE Department: Room: - Gender: Male Oncology Physician Assistant: RAVINDER : 1970 Requested By: YARA Montesinos Order Number: [id number] Reading MD: Marianela Smith Measurements Intervals [place] Rate: 65 P: 20 RI: 172 QRS: -13 QRSD: 82 T: 4 QT: 380 QTc: 395 Interpretive Statements Normal sinus rhythm NSTTW abnormalities decreased rate 03/14/21 Electronically Signed on 03-15-2021 10:58:54 EDT by Marianela Smith
== END 2021-03-15 01:54 | disposition home or self-care (01) ==
LOC: M ED 20:27
DX: R07.89 Other chest pain (principal); I10 Essential (primary) hypertension; K21.9 Gastro-esophageal reflux disease without esophagitis; G47.33 Obstructive sleep apnea (adult) (pediatric); F17.220 Nicotine dependence, chewing tobacco, uncomplicated; Z79.899 Other long term (current) drug therapy
CPT/HCPCS: 71045; 71275; 80048; 82550; 82553; 84484; 85025; 93005; 93041; 94760; 96374; 99285; J1885; Q9967

== ENCOUNTER 2022-09-28 17:35 | Emergency (ER) | payer OTHER ==
[~2022-09-28] VITALS: Ht 182.9 cm; Wt 101.4 kg
[~2022-09-28 17:35] MED LIST changes: -OMEP-221; +OMEP40CA5
[2022-09-28] MEDS ORDERED: LIDOCAINE 1% MDV 20ML VIAL SC ONE (18:40)
[2022-09-28] MEDS ORDERED: AUGMENTIN 875 MG TAB PO ONE (18:40)
[2022-09-28] MEDS ORDERED: AMOX875T2 PO (19:05)
[2022-09-28] MEDS ORDERED: HYDR-3713 PO (19:05)
[2022-09-28 19:09] VITALS: BP 139/96
== END 2022-09-28 19:22 | disposition home or self-care (01) ==
LOC: M ED 17:35
DX: S01.511A Laceration without foreign body of lip, initial encounter (principal); K08.112 Complete loss of teeth due to trauma, class II; W22.8XXA Striking against or struck by other objects, initial encounter; Y92.099 Unspecified place in other non-institutional residence as the place of occurrence of the external cause; I10 Essential (primary) hypertension; Z79.899 Other long term (current) drug therapy

== ENCOUNTER 2023-01-18 18:46 | Emergency (ER) | payer OTHER ==
[~2023-01-18] VITALS: Ht 185.4 cm; Wt 104.2 kg
[~2023-01-18 18:46] MED LIST changes: +AMOX875T2 PO; +HYDR-3713 PO
[2023-01-18] MEDS ORDERED: FINA5TAB2 (18:57)
[2023-01-18] MEDS ORDERED: DUPI300I (18:57)
[2023-01-18] MEDS ORDERED: CETI-24 (18:57)
[2023-01-18] MEDS ORDERED: HYDR-3490 (18:57)
[2023-01-18 20:48] LABS: BASO % 0.1 % (0.0-1.0); EOS % 0.1 % (0.0-3.0); HEMATOCRIT 40.1 % (42.0-52.0); HEMOGLOBIN 14.3 g/dl (13.5-17.5); LYMPH # 2.1 10^3/uL (1.5-5.0); LYMPH % 23.2 % (24.0-44.0); MEAN CORPUSCULAR HGB CONC 35.7 g/dl (32.0-36.5); MEAN CORPUSCULAR VOLUME 86.8 fl (80.0-96.0); MONO # 1.2 10^3/uL (0.0-0.8); MONO % 13.2 % (2.0-8.0); NEUTROPHILS # 5.6 10^3/uL (1.5-8.5); NEUTROPHILS % 63.1 % (36.0-66.0); PLATELET COUNT, AUTOMATED 301 10^3/uL (150-450); RED BLOOD COUNT 4.62 10^6/uL (4.30-6.10); WHITE BLOOD COUNT 8.9 10^3/uL (4.0-10.0)
[2023-01-18 21:05] LABS: ALBUMIN 4.3 G/DL (3.2-5.2); ALKALINE PHOSPHATASE 75 U/L (46-116); ALT/SGPT 45 U/L (7.0-40); AST/SGOT 42 U/L (<34); BILIRUBIN,DIRECT 0.2 MG/DL (<0.4); BILIRUBIN,TOTAL 0.9 MG/DL (0.3-1.2); BLOOD UREA NITROGEN 12 MG/DL (9-23); CALCIUM LEVEL 9.7 MG/DL (8.5-10.1); CARBON DIOXIDE LEVEL 27 MMOL/L (20-31); CHLORIDE LEVEL 99 MMOL/L (98-107); CREATININE FOR GFR 0.79 MG/DL (0.70-1.30); GLOMERULAR FILTRATION RATE > 60.0 (>56); GLUCOSE, FASTING 104 MG/DL (60-100); POTASSIUM SERUM 3.6 MMOL/L (3.5-5.1); SODIUM LEVEL 135 MMOL/L (136-145); TOTAL PROTEIN 7.3 G/DL (5.7-8.2)
[2023-01-18] MEDS ORDERED: DOXY-443 PO (21:54)
[2023-01-18] MEDS ORDERED: DOXYCYCLINE HYCLATE 100MG TABLET PO ONE (22:00)
[2023-01-18 22:04] VITALS: BP 133/81
== END 2023-01-18 22:13 | disposition home or self-care (01) ==
LOC: M ED 18:46
DX: L03.116 Cellulitis of left lower limb (principal); Z79.899 Other long term (current) drug therapy

== ENCOUNTER → 2023-09-30 | Outpatient (CLI) | payer OTHER ==
[~2023-09-30] MED LIST changes: +CETI-24; +DIAZ-654 PO; +DOXY-443 PO; +DUPI300I; +FINA5TAB2; +HYDR-3490; -VALI10TA PO
== END ==
LOC: M PLARAD 14:04
PROVIDERS: ATTEND Nurse Practitioner Family
DX: M51.17 Intervertebral disc disorders with radiculopathy, lumbosacral region (principal); M48.061 Spinal stenosis, lumbar region without neurogenic claudication; M47.816 Spondylosis without myelopathy or radiculopathy, lumbar region